=== PATIENT | female | born 1935 | race Caucasian/White ===

== ENCOUNTER 2019-08-04 06:03 | Emergency (ER) | payer MEDICARE ==
[~2019-08-04] VITALS: Ht 165.1 cm; Wt 70.3 kg
[~2019-08-04 06:03] MED LIST: AMLO5 PO; ASPI81CH PO; ATEN50 PO; CHOL10002; CLON.2 PO; Fish Oil300 MG PO; GEMF600 PO; LOSARTAN POTAS100 MG PO; SPIR25 PO
[2019-08-04] MEDS ORDERED: AMLODIPINE BESYL5 MG PO (06:23)
[2019-08-04 06:45] LABS: Source, Urine Clean Catch
[2019-08-04 06:51] LABS: BASOPHILS ABSOLUTE AUTO 0.09 K/mm3 (0.00-0.23); BASOPHILS PERCENT AUTO 1 % (0-2); EOSINOPHILS ABSOLUTE AUTO 0.05 K/mm3 (0.00-0.68); EOSINOPHILS PERCENT AUTO 0 % (0-6); Hematocrit 37.2 % (33.0-51.0); Hemoglobin 12.2 g/dL (11.5-16.0); IMMATURE GRAN ABSOLUTE AUTO 0.08 K/mm3 (0.00-0.10); IMMATURE GRAN PERCENT AUTO 1 % (0-1); LYMPHOCYTES ABSOLUTE AUTO 1.35 K/mm3 (0.84-5.20); LYMPHOCYTES PERCENT AUTO 8 % (21-46); MONOCYTES PERCENT AUTO 10 % (4-13); Mean Corpuscular HGB 32.9 pg (26.0-34.0); Mean Corpuscular HGB Conc 32.8 g/dL (31.5-36.5); Mean Corpuscular Volume 100 fL (80-100); Mean Platelet Volume 10.5 fL (9.1-12.4); NEUTROPHILS ABSOLUTE AUTO 13.05 K/mm3 (1.96-9.15); NEUTROPHILS PERCENT AUTO 80 % (41-73); Platelet Count 289 K/mm3 (150-400); RDW Coefficient Variation 13.7 % (11.7-14.2); RDW Standard Deviation 50.4 fL (35.1-46.3); Red Blood Cell Count 3.71 M/mm3 (3.80-5.20); White Blood Cell Count 16.32 K/mm3 (4.00-11.30)
[2019-08-04 06:55] LABS: Bilirubin, Urine Neg (Neg); Blood, Urine 2+ (Neg); Glucose Qualitative, Urine Neg (Neg); Ketones, Urine Neg (Neg); Leukocyte Esterase, Urine 3+ (Neg); Nitrite, Urine Pos (Neg); Protein, Urine 2+ (Neg); Urobilinogen, Urine NORM (Normal)
[2019-08-04 07:06] LABS: Appearance, Urine Turbid (Clear); Color, Urine Yellow (P-Yellow)
[2019-08-04 07:08] LABS: White Blood Cells, Urine TNTC /hpf (0-5)
[2019-08-04 07:10] LABS: Bacteria Many /hpf; Squamous Epithelial Cells Rare /hpf (Few)
[2019-08-04 07:14] LABS: Albumin, Blood 3.4 g/dL (3.4-5.0); Albumin/Globulin Ratio 0.8 (0.8-1.8); Bilirubin, Total 0.4 mg/dL (0.1-1.0); Bun/Creatinine Ratio 28.7 (12.0-20.0); Calcium, Blood 9.6 mg/dL (8.5-10.1); Creatinine, Blood 1.36 mg/dL (0.40-1.00); Globulin, Blood 4.5 g/dL (2.2-4.0); Potassium, Blood 4.2 mmol/L (3.5-5.5); Total Protein, Blood 7.9 g/dL (6.4-8.2)
[2019-08-04] MEDS ORDERED: CEFP200 PO (07:45)
== END 2019-08-04 08:53 | disposition home or self-care (01) ==
LOC: ER 06:03
PROVIDERS: Emergency Medicine
DX: N39.0 Urinary tract infection, site not specified (principal); I10 Essential (primary) hypertension; F41.9 Anxiety disorder, unspecified; Z88.0 Allergy status to penicillin; Z79.82 Long term (current) use of aspirin; Z79.899 Other long term (current) drug therapy; Z87.891 Personal history of nicotine dependence
CPT/HCPCS: 36415; 80053; 81001; 85025; 87077; 87086; 87186; 96365; 99284-25; J0696; J7030

== ENCOUNTER → 2019-08-14 | Outpatient (CLI) | payer MEDICARE ==
[~2019-08-14] MED LIST changes: +AMLODIPINE BESYL5 MG PO; +CEFP200 PO
[2019-08-14 11:09] LABS: Bilirubin, Urine Neg (Neg); Blood, Urine Neg (Neg); Glucose Qualitative, Urine Neg (Neg); Ketones, Urine Neg (Neg); Leukocyte Esterase, Urine Neg (Neg); Nitrite, Urine Neg (Neg); Protein, Urine Neg (Neg); Urobilinogen, Urine NORM (Normal); pH, Urine 6.5 (5.0-8.0)
[2019-08-14 11:10] LABS: Appearance, Urine Clear (Clear); Color, Urine Yellow (P-Yellow)
== END | disposition home or self-care (01) ==
LOC: LAB SHORT 06:50 → LAB 06:50 → LAB FUT 08-02 14:05
PROVIDERS: Internal Medicine
DX: R30.0 Dysuria (principal)
CPT/HCPCS: 81003

== ENCOUNTER → 2022-05-29 | Outpatient (CLI) | payer MEDICARE ==
[2022-05-29 14:54] LABS: BASOPHILS ABSOLUTE AUTO 0.08 K/mm3 (0.00-0.23); BASOPHILS PERCENT AUTO 1 % (0-2); EOSINOPHILS ABSOLUTE AUTO 0.23 K/mm3 (0.00-0.68); EOSINOPHILS PERCENT AUTO 3 % (0-6); Hematocrit 37.8 % (33.0-51.0); Hemoglobin 12.3 g/dL (11.5-16.0); IMMATURE GRAN ABSOLUTE AUTO 0.03 K/mm3 (0.00-0.10); IMMATURE GRAN PERCENT AUTO 0 % (0-1); LYMPHOCYTES ABSOLUTE AUTO 1.92 K/mm3 (0.84-5.20); LYMPHOCYTES PERCENT AUTO 24 % (21-46); MONOCYTES ABSOLUTE AUTO 0.83 K/mm3 (0.16-1.47); MONOCYTES PERCENT AUTO 10 % (4-13); Mean Corpuscular HGB 32.6 pg (26.0-34.0); Mean Corpuscular HGB Conc 32.5 g/dL (31.5-36.5); Mean Corpuscular Volume 100 fL (80-100); NEUTROPHILS ABSOLUTE AUTO 5.01 K/mm3 (1.96-9.15); NEUTROPHILS PERCENT AUTO 62 % (41-73); Platelet Count 273 K/mm3 (150-400); RDW Coefficient Variation 13.2 % (11.7-14.2); RDW Standard Deviation 48.7 fL (35.1-46.3); Red Blood Cell Count 3.77 M/mm3 (3.80-5.20)
[2022-05-29 15:18] LABS: C-REACTIVE PROTEIN, EXT RANGE 4.07 mg/dL (0.000-0.300)
[2022-05-29 15:19] LABS: Albumin, Blood 3.3 g/dL (3.4-5.0); Albumin/Globulin Ratio 0.8 (0.8-1.8); Bilirubin, Total 0.4 mg/dL (0.1-1.0); Bun/Creatinine Ratio 21.4 (12.0-20.0); Creatinine, Blood 1.54 mg/dL (0.40-1.00); Globulin, Blood 4.2 g/dL (2.2-4.0); Potassium, Blood 4.1 mmol/L (3.5-5.5); Total Protein, Blood 7.5 g/dL (6.4-8.2)
== END | disposition home or self-care (01) ==
LOC: LAB 14:10 → LAB SHORT 14:10
PROVIDERS: Nurse Practitioner Family
DX: R30.0 Dysuria (principal); R10.0 Acute abdomen
CPT/HCPCS: 80053; 83690; 84145; 85025; 86140; 87077; 87086; 87186

== ENCOUNTER → 2022-07-28 | Outpatient (CLI) | payer MEDICARE | LOC: LAB SHORT 14:45 → LAB 14:45 | DX: R30.0 Dysuria (principal) | CPT/HCPCS: 87077; 87086; 87186 ==

== ENCOUNTER → 2022-08-10 | Outpatient (CLI) | payer MEDICARE | END | disposition home or self-care (01) | LOC: LAB 14:48 → LAB SHORT 14:48 | DX: N39.0 Urinary tract infection, site not specified (principal); M54.50 Low back pain, unspecified | CPT/HCPCS: 87077; 87086; 87186 ==

== ENCOUNTER → 2023-01-15 | Outpatient (CLI) | payer MEDICARE | LOC: LAB SHORT 16:31 → LAB 16:31 | DX: R30.0 Dysuria (principal) | CPT/HCPCS: 87086 ==

== ENCOUNTER → 2023-09-02 | Outpatient (CLI) | payer MEDICARE | LOC: LAB 19:25 → LAB SHORT 19:25 | DX: R30.0 Dysuria (principal) | CPT/HCPCS: 87077; 87086; 87186 ==

== ENCOUNTER 2023-12-24 03:38 | Day surgery (SDC) | payer MEDICARE ==
[~2023-12-24 03:38] MED LIST changes: +Ertapenem Sodium 1,000 MG in NS 50 ML IV SCH
[2023-12-24] MEDS ORDERED: CLOP75 PO (10:53)
[2023-12-24] MEDS ORDERED: ZOCOR20 MG PO (10:54)
[2023-12-24] MEDS ORDERED: TAMS.4ER PO (10:56)
[2023-12-24 11:02] VITALS: BP 147/76
== END 2023-12-24 11:20 | disposition home or self-care (01) ==
LOC: ATC 03:38
DX: N39.0 Urinary tract infection, site not specified (principal); B96.20 Unspecified Escherichia coli [E. coli] as the cause of diseases classified elsewhere; I11.0 Hypertensive heart disease with heart failure; I50.9 Heart failure, unspecified; E78.5 Hyperlipidemia, unspecified; Z79.82 Long term (current) use of aspirin; Z79.02 Long term (current) use of antithrombotics/antiplatelets; Z79.899 Other long term (current) drug therapy
CPT/HCPCS: 96365; C1751; J1335

== ENCOUNTER 2023-12-25 04:35 | Day surgery (SDC) | payer MEDICARE ==
[~2023-12-25 04:35] MED LIST changes: +CLOP75 PO; +TAMS.4ER PO; +ZOCOR20 MG PO
[2023-12-25 10:40] VITALS: BP 135/80
== END 2023-12-25 10:55 | disposition home or self-care (01) ==
LOC: ATC 04:35
DX: N12 Tubulo-interstitial nephritis, not specified as acute or chronic (principal); B96.20 Unspecified Escherichia coli [E. coli] as the cause of diseases classified elsewhere; Z16.12 Extended spectrum beta lactamase (ESBL) resistance; I11.0 Hypertensive heart disease with heart failure; I50.9 Heart failure, unspecified; E78.5 Hyperlipidemia, unspecified; Z79.82 Long term (current) use of aspirin; Z79.02 Long term (current) use of antithrombotics/antiplatelets; Z79.899 Other long term (current) drug therapy; Z88.0 Allergy status to penicillin; Z88.8 Allergy status to other drugs, medicaments and biological substances
CPT/HCPCS: 96365; J1335

== ENCOUNTER 2023-12-26 01:54 | Day surgery (SDC) | payer MEDICARE ==
[2023-12-26 10:23] VITALS: BP 123/69
== END 2023-12-26 10:38 | disposition home or self-care (01) ==
LOC: ATC 01:54
DX: N39.0 Urinary tract infection, site not specified (principal); B96.20 Unspecified Escherichia coli [E. coli] as the cause of diseases classified elsewhere; Z16.12 Extended spectrum beta lactamase (ESBL) resistance
CPT/HCPCS: 96365; J1335

== ENCOUNTER 2023-12-27 03:26 | Day surgery (SDC) | payer MEDICARE ==
[2023-12-27 10:21] VITALS: BP 149/86
[2023-12-27 10:58] LABS: BASOPHILS ABSOLUTE AUTO 0.11 K/mm3 (0.00-0.23); BASOPHILS PERCENT AUTO 1 % (0-2); EOSINOPHILS ABSOLUTE AUTO 0.34 K/mm3 (0.00-0.68); EOSINOPHILS PERCENT AUTO 4 % (0-6); Hematocrit 34.5 % (33.0-51.0); Hemoglobin 11.3 g/dL (11.5-16.0); IMMATURE GRAN ABSOLUTE AUTO 0.07 K/mm3 (0.00-0.10); IMMATURE GRAN PERCENT AUTO 1 % (0-1); LYMPHOCYTES ABSOLUTE AUTO 2.26 K/mm3 (0.84-5.20); LYMPHOCYTES PERCENT AUTO 26 % (21-46); MONOCYTES ABSOLUTE AUTO 0.64 K/mm3 (0.16-1.47); MONOCYTES PERCENT AUTO 7 % (4-13); Mean Corpuscular HGB Conc 32.8 g/dL (31.5-36.5); Mean Corpuscular Volume 98 fL (80-100); Mean Platelet Volume 9.9 fL (9.1-12.4); NEUTROPHILS ABSOLUTE AUTO 5.43 K/mm3 (1.96-9.15); NEUTROPHILS PERCENT AUTO 62 % (41-73); Platelet Count 414 K/mm3 (150-400); RDW Coefficient Variation 13.3 % (11.7-14.2); RDW Standard Deviation 47.4 fL (35.1-46.3); Red Blood Cell Count 3.53 M/mm3 (3.80-5.20); White Blood Cell Count 8.85 K/mm3 (4.00-11.30)
[2023-12-27 11:18] LABS: Albumin, Blood 3.1 g/dL (3.4-5.0); Albumin/Globulin Ratio 0.8 (0.8-1.8); Bilirubin, Total 0.4 mg/dL (0.1-1.0); Bun/Creatinine Ratio 22.7 (12.0-20.0); Creatinine, Blood 0.92 mg/dL (0.40-1.00); Globulin, Blood 4.1 g/dL (2.2-4.0); Potassium, Blood 3.8 mmol/L (3.5-5.5); Total Protein, Blood 7.2 g/dL (6.4-8.2)
== END 2023-12-27 10:46 | disposition home or self-care (01) ==
LOC: ATC 03:26
PROVIDERS: Internal Medicine Infectious Disease
DX: N30.90 Cystitis, unspecified without hematuria (principal); B96.20 Unspecified Escherichia coli [E. coli] as the cause of diseases classified elsewhere; Z16.12 Extended spectrum beta lactamase (ESBL) resistance; I11.0 Hypertensive heart disease with heart failure; I50.9 Heart failure, unspecified; E78.5 Hyperlipidemia, unspecified; Z79.82 Long term (current) use of aspirin; Z79.02 Long term (current) use of antithrombotics/antiplatelets; Z79.899 Other long term (current) drug therapy; Z88.0 Allergy status to penicillin; Z88.8 Allergy status to other drugs, medicaments and biological substances
CPT/HCPCS: 80053; 85025; 96365; J1335

== ENCOUNTER 2025-03-08 06:46 | Day surgery (SDC) | payer MEDICARE ==
[~2025-03-08] VITALS: Ht 165.1 cm; Wt 68.4 kg
[~2025-03-08 06:46] MED LIST changes: -Ertapenem Sodium 1,000 MG in NS 50 ML IV SCH
[2025-03-08] MEDS ORDERED: CeFAZolin Sodium 2,000 MG VIAL ONE (07:36)
[2025-03-08] MEDS ORDERED: NS 500 ML IV ONE ×2 (07:39→09:06)
--- NOTE | 2025-03-08 08:00 | NUR ---
03/08/25 0800 Katya Miramontes TIME OUT PERFORMED AT BEDSIDE WITH DR CUADRA AT 0748. 6ML OF 10ML SOLUTION CONSISTING OF 9ML 1% LIDOCAINE WITH EPI [id number] AND 1ML 8.4 % SODIUM BICARBONATE INJECTED INTO R HAND. PT TOLERATED PROCEDURE WELL.
--- NOTE | 2025-03-08 09:19 | NUR ---
03/08/25 0919 Chaparro Juan PT INSTRUCTED TO MONITOR B/P AT HOME AND FOLLOW UP WITH PCP NEEDED. SHE DENIED CP, SOB, NAUSEA, DIZZINESS, [place], WEAKNESS, VISUAL DISTURBANCE, AND OTHER SYMPTOMS.
[2025-03-08 09:22] VITALS: BP 125/71
== END 2025-03-08 09:10 | disposition home or self-care (01) ==
LOC: ORSCSDS 06:46
PROVIDERS: Orthopaedic Surgery
PROC: 01N54ZZ Release Median Nerve, Percutaneous Endoscopic Approach (ICD-10-PCS; principal; 2025-03-08 08:30)
PROC: 0JBG0ZX Excision of Right Lower Arm Subcutaneous Tissue and Fascia, Open Approach, Diagnostic (ICD-10-PCS; principal; 2025-03-08 08:30)
DX: G56.03 Carpal tunnel syndrome, bilateral upper limbs (principal); I10 Essential (primary) hypertension; E78.5 Hyperlipidemia, unspecified; Z85.72 Personal history of non-Hodgkin lymphomas; Z79.899 Other long term (current) drug therapy; Z87.891 Personal history of nicotine dependence
CPT/HCPCS: 88304; 88313; J0690; J2704; J7040